=== PATIENT | male | born 1970 | race Two or more races ===

== ENCOUNTER 2016-02-27 17:32 | Emergency (ER) | payer MEDICARE, OTHER ==
[2016-02-27 18:44] LABS: ABSOLUTE NEUTROPHIL COUNT 10.1 K/mm3 (1.8-7.7); BASO % 0.2 % (0.2-1.0); EOS % 0.1 % (0.9-2.9); HEMATOCRIT 39.4 % (32.0-52.0); IMM NEUT # 0.1 K/mm3 (0-0.2); IMM NEUT% 0.6 % (0-1); LYMPH # 0.7 (1.0-4.8); LYMPH % 6.3 % (15-45); MEAN CELL VOLUME 84.7 fl (80.0-94.0); MEAN PLATELET VOLUME 10.4 fl (7.4-10.4); MONO # 0.6 (0.0-0.8); MONO % 5.5 % (4-12); NEUT % 87.3 % (43-75); PLATELET COUNT 250 K/mm3 (130-400); RED CELL DISTRIBUTION WIDTH 12.7 % (11.5-14.5)
--- NOTE | 2016-02-27 19:12 | RAD ---
Name: PETER BAUMANN Exam: Two-view chest Comparison: 09/02/2015 Clinical history: Cough Findings: 2 views the chest are submitted. Heart is not enlarged. There is no hilar enlargement. Large anterior midline diaphragmatic hernia allows a large amount of colon into the chest and there is no evidence for obstruction. COPD is present. Mild left basilar infiltrate is noted. There is been prior right shoulder surgery. There is no pleural effusion or pneumothorax. Prominent levoscoliosis centered in the upper thoracic spine is again identified. Impression: 1. Mild left basilar pneumonia 2. COPD 3. Large midline anterior diaphragmatic hernia allowing a large amount of bowel into the chest. There is no current evidence for obstruction. Findings are similar to the prior.
[2016-02-27] MEDS ORDERED: ALBUTEROL/IPRATROPIUM 2.5/0.5 MG 3 ML/EACH DOSE ONE (20:12)
[2016-02-27] MEDS ORDERED: CEFTRIAXONE 1 GRAM DUPLEX 100 ML IV ONE (20:30)
[2016-02-27] MEDS ORDERED: DEXAMETHASONE SOD PHOS 10 MG/1 ML VIAL ONE (20:30)
[2016-02-27 21:19] LABS: ALB/GLOB RATIO 0.9 (>1.0); ALBUMIN 3.3 gm/dL (3.5-5.7); CALCIUM 8.4 mg/dL (8.6-10.3)
== END 2016-02-27 22:13 | disposition home or self-care (01) ==
LOC: ED 17:32
DX: J18.9 Pneumonia, unspecified organism (principal); J45.909 Unspecified asthma, uncomplicated; Z87.01 Personal history of pneumonia (recurrent); Z87.442 Personal history of urinary calculi
CPT/HCPCS: 83605; 85025; 87040; 80053; 71020; 87804; 94640; 99284 ×2; 96365; 36415; J1100; J0696